=== PATIENT | female | born 1980 | race Caucasian/White ===

== ENCOUNTER 2017-04-23 17:07 | Emergency (ER) | payer SELFPAY ==
[2017-04-23 17:07] VITALS: BP 133/83; PULSE 94; RESP 16; TEMP 36.9; O2SAT 97; BMI 26.5
--- NOTE | 2017-04-23 17:26 | RAD_ITS ---
STUDY: X-RAY - RIGHT FOOT CLINICAL: Female, 36 years old. Pain TECHNIQUE: 3 view(s) of the foot. COMPARISON: None. FINDINGS: Normal talus, calcaneus, and tarsal bones. Normal visualized subtalar, talonavicular, calcaneocuboid, tarsal and tarsometatarsal articulations. Postop changes status post ORIF fracture of the fifth metatarsal with indwelling orthopedic partially threaded screw Normal metatarsophalangeal joint of the great toe. Normal tibial and fibular sesamoid bones. Normal interphalangeal joint of the great toe. Normal phalanges of the great toe. Normal second through fifth metatarsophalangeal joints. Normal interphalangeal joints and phalanges of the lesser toes. The soft tissue structures are unremarkable. RAD/Foot min 3 Views IMPRESSION: Postsurgical changes of the fifth metatarsal. No evidence for acute fracture Electronically Signed: David Talley MD at 18:02 EDT , Service support ,
--- NOTE | 2017-04-23 17:26 | ED.VISSUMM ---
- ER Visit Summary Date of Service: 04/23/17 Chief Complaint: Right foot injury History of Present Illness: The patient is a 36 F right foot injury at 4 PM today in the basement. Tripped over a hose twisting her foot. No falls or head injuries. No paresthesias. Using home crutches. No history of gastric ulcers or kidney injuries. Has had a Stevens fracture left foot repaired by Dr. Leticia Rogers in the past. Is concerned of fracture. No medications taken prior to arrival. Physical Examination: General: Alert and oriented ?3, no acute distress HEENT: Normocephalic, atraumatic. Moist mucosa membranes Neck: supple, nontender. Cardiovascular: Regular rate and rhythm, no murmurs Respiratory: Normal breath sounds, symmetric, no distress Abdomen: Soft, nontender, nondistended Extremities: Right lower extremity: No knee or ankle tenderness. No proximal fifth base tenderness. There is tenderness to the midfoot with slight swelling. Skin intact. Neurovascularly intact. Neuro: no focal neurological deficits. Test Results: Right foot x-ray: No fracture dislocation, hardware intact that fifth metatarsal. Emergency Department Course and Treatment: Ice was placed. Patient declined any medications. X-ray negative. Decline Andrey wrap her postop shoe. She does have crutches. Rice therapy discussed. She may use [id number] Tylenol or Motrin as needed. All questions were answered. Treatment Plan: Symptomatic Disposition: Discharge Impression: Right foot sprain This note was generated with [employer] dictation software. It may contain incorrect words, spelling, and punctuation that were not noted in review of the chart prior to signing ED Disposition - Plan for ED Patient: Disposition: Home or Assisted Living Chief Complaint: Lower Extremity Injury Diagnosis: Right foot sprain Instructions: ED Sprain Foot Referrals: Parris Enriquez [Primary Care Provider] - 5-7 Days
[2017-04-23 18:12] VITALS: PULSE 87; RESP 16; O2SAT 98
== END 2017-04-23 18:13 | disposition home or self-care (01) ==
PROVIDERS: Emergency Provider Emergency Medicine; Family Provider Nurse Practitioner; PCP Nurse Practitioner
DX: S93.601A Unspecified sprain of right foot, initial encounter (principal); W22.8XXA Striking against or struck by other objects, initial encounter; Y93.9 Activity, unspecified; Y92.008 Other place in unspecified non-institutional (private) residence as the place of occurrence of the external cause; Y99.9 Unspecified external cause status; K21.9 Gastro-esophageal reflux disease without esophagitis; F31.9 Bipolar disorder, unspecified
CPT/HCPCS: 73630; 99282

== ENCOUNTER 2018-05-09 18:41 | Emergency (ER) | payer BC, SELFPAY ==
[2018-05-09 18:42] VITALS: BP 122/96; PULSE 94; PULSE 98; RESP 17; RESP 18; TEMP 36.5; O2SAT 97; O2SAT 98; BMI 28.0
[2018-05-09] MEDS: Metoclopramide 10 MG/2 ML Vial IV (19:54)
[2018-05-09] MEDS: Ketorolac 30 MG/ML Syringe IV (19:54)
[2018-05-09] MEDS: DiphenhydrAMINE 50 MG/ML Syringe 25 MG IV (19:54)
[2018-05-09] MEDS: 0.9% Normal Saline 1,000 ML 999 ML IV (19:54)
--- NOTE | 2018-05-09 20:56 | ED.VISSUMM ---
- ER Visit Summary Date of Service: 05/09/18 Chief Complaint: Headache History of Present Illness: The patient is a 37 F who presents with headache that began today. Patient has a history of migraine headaches. Patient states this is different than other migraine headaches but this is not the worst headache of her life. Patient states her pain is worse when she moves her head. Patient admits to some nausea and vomiting. Patient admits to photophobia. Patient admits to some tingling in her hands but denies any numbness or weakness. Patient denies any visual changes or scotoma. Physical Examination: Vital signs are stable. Patient is afebrile. Patient is in no acute distress. Cranial nerves II through XII are intact. There are no focal motor or sensory deficits noted. Neck is supple. Trachea is midline. There is no JVD noted. There is no meningismus noted. Heart was regular rate and rhythm. Lungs are clear and equal bilateral. Abdomen is soft and nontender. Emergency Department Course and Treatment: She was given IV fluids, Reglan, Benadryl, and Toradol. Patient felt better on reevaluation. Patient was instructed to rest in a dark quiet room. Patient was instructed to follow-up with her primary care physician in 7-10 days. Patient understood and was agreeable with the plan. All questions were answered. Disposition: Discharge home Impression: Migraine headache This note was generated with [employer] dictation software. It may contain incorrect words, spelling, and punctuation that were not noted in review of the chart prior to signing ED Disposition - Plan for ED Patient: Disposition: Home or Assisted Living Diagnosis: Migraine headache Instructions: ED Headache Migraine Referrals: Parris Enriquez NP-C [Primary Care Provider] - 5-7 Days
[2018-05-09 21:12] VITALS: BP 129/76; PULSE 72; RESP 18; O2SAT 98
== END 2018-05-09 21:14 | disposition home or self-care (01) ==
PROVIDERS: Emergency Provider Emergency Medicine; Family Provider Nurse Practitioner; PCP Nurse Practitioner
DX: G43.809 Other migraine, not intractable, without status migrainosus (principal)
CPT/HCPCS: 99284

== ENCOUNTER → 2018-07-02 16:43 | Outpatient (CLI) | payer BC, SELFPAY ==
[2018-07-02 18:04] LABS: Absolute Lymphocyte Count 1.11 X10^3/ul (0.83-4.51); Absolute Neutrophil Count 2.8 X10^3/uL (2.0-7.7); Basophil# 0.02 X10^3/uL; Basophil% 0.5 % (0-1); Eosinophil# 0.03 X10^3/uL; Eosinophils% 0.7 % (0-5); Hematocrit 43.3 % (37-47); Hemoglobin 14.6 g/dl (12.0-15.0); Lymphocyte # 1.11 X10^3/ul (4.0); Lymphocyte % 25.4 % (19-41); Mean Corp Hgb Conc 33.7 g/gl (32-36); Mean Corpuscular Hgb 31.6 pg (27.0-32.0); Mean Corpuscular Volume 93.7 fL (81-99); Mean Platelet Vol. 10.6 fl (6.2-12.0); Monocyte# 0.36 X10^3/uL; Monocyte% 8.2 % (0-10); Neutrophil # 2.84 X10^3/uL (2.7-7.7); Platelet Count 246 K/mm3 (150-450); RBC Distribution Width CV 12.4 % (11.6-14.6); RBC Distribution Width SD 41.8 fl (35.1-43.9); Red Blood Count 4.62 M/mm3 (4.2-5.4); White Blood Count 4.4 K/mm3 (4.4-11.0)
[2018-07-02 18:05] LABS: POSITIVE COUNT NO; POSITIVE DIFFERENTIAL NO; POSITIVE MORPHOLOGY NO
[2018-07-02 18:24] LABS: ALB/GLOB Ratio 1.1 RATIO (0.9-2.4); AST(SGOT) 17 U/L (15-37); Alanine Aminotransfer ALT/SGPT 23 U/L (13-56); Albumin, Serum 3.8 g/dL (3.2-5.0); Alkaline Phosphatase 67 U/L (45-117); Anion Gap 7 (5-15); BUN 9 mg/dL (7-18); BUN/Creat Ratio 9.1 RATIO (10-20); Calcium,Total 8.8 mg/dL (8.5-10.1); Chloride 108 mmol/L (98-107); Creatinine, Serum 0.99 mg/dL (0.55-1.02); EST Glomerular Filtration Rate 67 mL/min (>60); Est Glom Filt Rate - Afr Amer 80 mL/min (>60); Globulin 3.4 g/dL (2.2-4.2); Glucose 94 mg/dL (74-106); Protein, Total 7.2 g/dL (6.4-8.2); Sodium Level 142 mmol/L (136-145); Thyroid Stim Hormone (TSH) 0.36 uIU/mL (0.358-3.74)
== END ==
PROVIDERS: Family Provider Nurse Practitioner; PCP Nurse Practitioner; Referring Provider Nurse Practitioner; Visit Provider Nurse Practitioner
DX: F31.9 Bipolar disorder, unspecified (principal)
CPT/HCPCS: 36415; 80053; 84443; 85025

== ENCOUNTER → 2019-03-15 06:54 | Outpatient (CLI) | payer BC, SELFPAY ==
--- NOTE | 2019-03-15 06:59 | CT_ITS ---
STUDY: CT CERVICAL SPINE WITHOUT CONTRAST REASON FOR EXAM: Female, 38 years old. FALL HEAD AND NECK TRAUMA 5 DAYS AGO. VASOVAGAL SYNCOPE RADIATION DOSAGE (If Supplied By Facility): CTDIvol = ( 19.13 ) mGy, DLP = ( 385.81 ) mGycm TECHNIQUE: High resolution transaxial imaging was performed without contrast material. Sagittal and coronal images were reconstructed. Individualized dose optimization techniques were used for this CT. COMPARISON: None FINDINGS: Normal craniovertebral junction. Normal anterior atlantoaxial articulation. Normal odontoid process. There is straightening of the normal cervical lordosis. Normal vertebral bodies and posterior osseous elements. C2-3: Normal endplates. Normal disc height and morphology. Normal central canal and intervertebral neuroforamina. C3-4: Normal endplates. Normal disc height and morphology. Normal central canal and intervertebral neuroforamina. C4-5: Normal endplates. Normal disc height and morphology. Normal central canal and intervertebral neuroforamina. C5-6: Normal endplates. Normal disc height and morphology. Normal central canal and intervertebral neuroforamina. C6-7: Normal endplates. Normal disc height and morphology. Normal central canal and intervertebral neuroforamina. C7-T1: Normal endplates. Normal disc height and morphology. Normal central canal and intervertebral neuroforamina. Normal visualized soft tissue structures. CT/Spine Cervical without Contras IMPRESSION: There is straightening of the normal cervical lordosis. Electronically Signed: Artem Jordan, at 9:03 EST , Service support ,
--- NOTE | 2019-03-15 06:59 | CT_ITS ---
STUDY: CT BRAIN WITHOUT CONTRAST REASON FOR EXAM: Female, 38 years old. FALL HEAD AND NECK TRAUMA 5 DAYS AGO. VASOVAGAL SYNCOPE RADIATION DOSAGE (If Supplied By Facility): CTDIvol = ( 44.99 ) mGy, DLP = ( 728.62 ) mGycm TECHNIQUE: Transaxial CT imaging of the brain was performed without administration of intravenous contrast material. Individualized dose optimization techniques were used for this CT. COMPARISON: No relevant priors. FINDINGS: Normal soft tissue structures. Normal calvarium. Normal size ventricles and extra-axial spaces for the patient''s age. Normal white matter tracts of the cerebral hemispheres. Normal basal ganglia and thalami. Normal brainstem. Normal cerebellum. There is no intracranial hemorrhage. There are no findings of an acute ischemic infarction. Normal visualized paranasal sinuses. CT/Brain/Head without Contrast IMPRESSION: Normal unenhanced CT scan of the brain. Electronically Signed: Artem Jordan, at 9:02 EST , Service support ,
== END ==
PROVIDERS: PCP Nurse Practitioner; Referring Provider Nurse Practitioner; Visit Provider Nurse Practitioner
DX: S09.90XA Unspecified injury of head, initial encounter (principal); R55 Syncope and collapse
CPT/HCPCS: 70450; 72125; 95819

== ENCOUNTER → 2019-04-12 07:35 | Outpatient (CLI) | payer BC, SELFPAY ==
--- NOTE | 2019-04-12 07:37 | US_ITS ---
STUDY: THYROID ULTRASOUND REASON FOR EXAM: Female, 38 years old. ABN TSH -- EPISODES OF SYNCOPE TECHNIQUE: Ultrasound evaluation of the thyroid was performed with real-time and static wallace-scale imaging. COMPARISON: None. FINDINGS: RIGHT LOBE: The right lobe of the thyroid gland measures 5.6 x 2.0 x 1.6 cm. There is a homogeneous echotexture. There are no demonstrated solid, cystic or complex lesions. LEFT LOBE: The left lobe of the thyroid gland measures 5.1 x 1.9 x 1.2 cm. There is a homogeneous echotexture. There are no demonstrated solid, cystic or complex lesions. ISTHMUS: The isthmus measures 3 mm . The regional lymph nodes are normal. US/Thyroid IMPRESSION: Enlarged homogeneous bilateral thyroid, with increased vascularity. Could consider Graves'' disease in the appropriate laboratory setting. No visualized focal nodules. Electronically Signed: Bernadette Huff MD at 9:00 EST Tel , Service support ,
== END ==
PROVIDERS: PCP Nurse Practitioner; Referring Provider Nurse Practitioner; Visit Provider Nurse Practitioner
DX: R94.6 Abnormal results of thyroid function studies (principal)
CPT/HCPCS: 76536

== ENCOUNTER → 2019-04-29 07:49 | Outpatient (CLI) | payer BC, SELFPAY ==
--- NOTE | 2019-04-29 07:51 | ECHOD_ITS ---
Reason For Study: Syncope- Every other day Procedure This was a 2D Doppler, Color Flow transthoracic echocardiogram. Contrast injection was performed. Exam performed in department. Left Ventricle Normal LV size. Left ventricular systolic function is normal. The estimated ejection fraction is 65 %. No regional wall motion abnormalities noted. Right Ventricle Normal RV size. Normal systolic function. Atria Normal left atrium. Normal right atrium. Mitral Valve Normal mitral valve. Tricuspid Valve Normal tricuspid valve. Aortic Valve Normal aortic valve. Trisinus/trileaflet aortic valve. Pulmonic Valve Normal pulmonic valve. Great Vessels Normal aortic root. The pulmonary artery is normal size. Normal inferior vena cava. Pericardium/Pleural No pericardial effusion. Medication 22 gauge I.V. with prn adaptor inserted into right arm. Performed a rapid injection of agitated mix of 9 cc saline and 1cc air to assess for atrial septal defect. MMode/2D Measurements & Calculations LVIDd: 4.0 cm IVSd: 0.95 cm Ao root diam: 2.9 cm LVIDs: 2.6 cm LVPWd: 1.1 cm LA dimension: 3.4 cm RVDd: 3.2 cm FS: 34.7 % LAV(MOD-bp): 46.6 ml LA A4 area: 16.5 cm2 RA A4 area: 13.0 cm2 LAV(MOD-bp) Indexed: 25.8 ml/m2 LAV(MOD-sp2): 48.6 ml LAV(MOD-sp4): 43.8 ml Time Measurements MV dec time: 0.25 sec Doppler Measurements & Calculations MV E max bhargav: 75.1 cm/sec Lat Peak E' Bhargav: 15.2 cm/sec Med Peak E' Bhargav: 10.7 cm/sec MV A max bhargav: 67.6 cm/sec E/E' lat: 5.0 E/E' med: 7.0 MV E/A: 1.1 MV V2 max: 91.3 cm/sec MV P1/2t max bhargav: 89.1 cm/sec Ao V2 max: 126.6 cm/sec MV max P.3 mmHg MV P1/2t: 70.8 msec Ao max P.4 mmHg MV V2 mean: 53.0 cm/sec MV dec slope: 368.7 cm/sec2 MV mean P.3 mmHg MV V2 VTI: 21.7 cm MVA(P1/2t): 3.1 cm2 LV V1 max: 86.6 cm/sec PA V2 max: 98.2 cm/sec LV V1 max P.0 mmHg Interpretation Summary The estimated ejection fraction is 65 %. Left ventricular systolic function is normal. Normal LV size. Structurally normal valves. Ordering Physician: Cristian Brunner Referring Physician: Cristian Brunner Performed By: Walter Box RCS
--- NOTE | 2019-04-29 08:27 | CDU_ITS ---
Reason For Study: Syncope Rt. Velocities/BP Lt. Velocities/BP Prox CCA 101/20 cm/sec. Prox CCA 127/27 cm/sec. Mid CCA 110/23 cm/sec. Mid CCA 131/39 cm/sec. Dist CCA 103/29 cm/sec. Dist CCA 98/38 cm/sec. Prox ICA 114/25 cm/sec. Prox ICA 88/30 cm/sec. Mid ICA 99/32 cm/sec. Mid ICA 79/31 cm/sec. Dist ICA 78/28 cm/sec. Dist ICA 87/36 cm/sec. Rt. ICA/CCA = 1.04. Lt. ICA/CCA = 0.7. Prox ECA 117/17 cm/sec. Prox ECA 100/18 cm/sec. Rt. Vert. 62/19 cm/sec. Lt. Vert. 63/20 cm/sec. Right Extracranial There is intimal thickening but no significant atherosclerotic plaque noted in the right common carotid artery. There is intimal thickening but no significant atherosclerotic plaque noted in the right internal carotid artery. There is no significant atherosclerotic plaque noted in the right external carotid artery. Antegrade flow is noted in the right vertebral artery. Left Extracranial There is intimal thickening but no significant atherosclerotic plaque noted in the left common carotid artery. There is intimal thickening but no significant atherosclerotic plaque noted in the left internal carotid artery. There is intimal thickening but no significant atherosclerotic plaque noted in the left external carotid artery. Antegrade flow is noted in the left vertebral artery. Interpretation Summary No significant atherosclerotic plaque or stenosis noted in the internal carotid arteries bilaterally. Flow within the vertebral arteries is antegrade bilaterally. Ordering Physician: Cristian Brunner Referring Physician: Parris Enriquez Performed By: Laurel Cardoza, MIREYACS, RVT
== END ==
PROVIDERS: PCP Nurse Practitioner; Referring Provider Psychiatry & Neurology Neurology; Visit Provider Psychiatry & Neurology Neurology
DX: R55 Syncope and collapse (principal)
CPT/HCPCS: 93306; 93880; A4216

== ENCOUNTER → 2019-09-25 07:46 | Outpatient (CLI) | payer BC, SELFPAY ==
[2019-09-25] MEDS: Cosyntropin 0.25 MG Vial IV (08:39)
[2019-09-25 08:58] VITALS: BP 129/92; PULSE 85; RESP 16; TEMP 36.5; O2SAT 97; BMI 31.8
[2019-09-25 10:00] VITALS: BP 154/88; PULSE 68
[2019-09-26 16:08] LABS: DHEA Sulfate 64.1 ug/dL (57.3-279.2)
== END ==
PROVIDERS: PCP Nurse Practitioner; Referring Provider Internal Medicine Endocrinology, Diabetes & Metabolism; Visit Provider Internal Medicine Endocrinology, Diabetes & Metabolism
DX: E27.9 Disorder of adrenal gland, unspecified (principal)
CPT/HCPCS: 96374; 82024; 82533; 82627; 82626; A4216; J0834

== ENCOUNTER → 2020-06-18 15:36 | Outpatient (CLI) | payer OTHER, SELFPAY ==
[2019-09-25 08:58] VITALS: BMI 31.8
--- NOTE | 2020-06-18 15:39 | US_ITS ---
STUDY: ULTRASOUND OF THE FEMALE PELVIS - COMPLETE REASON FOR EXAM: Female, 39 years old. BLEEDING LMP: 4-21 TECHNIQUE: Transabdominal real-time exam with grayscale image documentation. TECHNICAL QUALITY: Adequate. COMPARISON: None. FINDINGS: The uterus is anteverted on transabdominal ultrasound and retroverted on transvaginal ultrasound and is in a midline position. The uterus measures 8.0 x 8.0 x 4.3 cm. Nabothian cyst of the cervix. Septated uterus with endometrial thickening of 9 mm. The endometrium is striated. There is no demonstrated endometrial mass. There is a 1.2 x 1.4 x 1.0 cm posterior right fibroid. I.U.D. - The patient does not have an I.U.D. The right ovary is visualized. The right ovary measures 2.5 x 1.7 x 1.5 cm. 14 x 13 x 11 mm dominant follicle of the right ovary. There is no visualized right adnexal mass or complex lesion. There is normal arterial and normal venous vascularity. The left ovary is visualized. The left ovary measures 3.8 x 2.3 x 1.8 cm. There is no left ovarian cyst or ovarian mass. There is no visualized left adnexal mass or complex lesion. There is normal arterial and normal venous vascularity. There is no fluid in the cul-de-sac. The pre void volume of the bladder was 454 ml. The post void volume of the bladder was 0 ml. Polycystic ovary disease: No. 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 1.2 x 1.4 x 1.0 cm fibroid of the uterus. Nabothian cyst of the cervix. Normal size of the ovaries bilaterally with normal DOPPLER flow. 14 x 13 x 11 mm dominant follicle of the right ovary. No additional adnexal masses or free fluid. Electronically Signed: Juliana Horowitz MD at 0:01 EDT , Service support ,
--- NOTE | 2020-06-18 15:39 | US_ITS ---
STUDY: ULTRASOUND OF THE FEMALE PELVIS - COMPLETE REASON FOR EXAM: Female, 39 years old. BLEEDING LMP: 4-21 TECHNIQUE: Transabdominal real-time exam with grayscale image documentation. TECHNICAL QUALITY: Adequate. COMPARISON: None. FINDINGS: The uterus is anteverted on transabdominal ultrasound and retroverted on transvaginal ultrasound and is in a midline position. The uterus measures 8.0 x 8.0 x 4.3 cm. Nabothian cyst of the cervix. Septated uterus with endometrial thickening of 9 mm. The endometrium is striated. There is no demonstrated endometrial mass. There is a 1.2 x 1.4 x 1.0 cm posterior right fibroid. I.U.D. - The patient does not have an I.U.D. The right ovary is visualized. The right ovary measures 2.5 x 1.7 x 1.5 cm. 14 x 13 x 11 mm dominant follicle of the right ovary. There is no visualized right adnexal mass or complex lesion. There is normal arterial and normal venous vascularity. The left ovary is visualized. The left ovary measures 3.8 x 2.3 x 1.8 cm. There is no left ovarian cyst or ovarian mass. There is no visualized left adnexal mass or complex lesion. There is normal arterial and normal venous vascularity. There is no fluid in the cul-de-sac. The pre void volume of the bladder was 454 ml. The post void volume of the bladder was 0 ml. Polycystic ovary disease: No. 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 1.2 x 1.4 x 1.0 cm fibroid of the uterus. Nabothian cyst of the cervix. Normal size of the ovaries bilaterally with normal DOPPLER flow. 14 x 13 x 11 mm dominant follicle of the right ovary. No additional adnexal masses or free fluid. Electronically Signed: Juliana Horowitz MD at 0:01 EDT , Service support ,
== END ==
PROVIDERS: PCP Nurse Practitioner; Referring Provider Nurse Practitioner; Visit Provider Nurse Practitioner
DX: N93.9 Abnormal uterine and vaginal bleeding, unspecified (principal)
CPT/HCPCS: 76830; 76856

== ENCOUNTER → 2020-06-22 | Outpatient (CLI) | payer OTHER, SELFPAY ==
[2019-09-25 08:58] VITALS: BMI 31.8
[2020-06-24 20:41] LABS: HPV APTIMA, High Risk Negative (Negative)
== END | disposition home or self-care (01) ==
LOC: LABSPEC 12:52
PROVIDERS: PCP Nurse Practitioner; Referring Provider Nurse Practitioner Women's Health; Visit Provider Nurse Practitioner Women's Health
DX: Z12.4 Encounter for screening for malignant neoplasm of cervix (principal)
CPT/HCPCS: 87624; 88175; G0145

== ENCOUNTER → 2020-07-09 12:06 | Outpatient (CLI) | payer OTHER, SELFPAY ==
[2019-09-25 08:58] VITALS: BMI 31.8
--- NOTE | 2020-07-09 12:16 | RAD_ITS ---
STUDY: HYSTEROSALPINGOGRAM. REASON FOR EXAM: Female, 39 years old. Infertility septate uterus FLUOROSCOPY TIME (if supplied): ( 34 seconds. ) minutes/seconds. 5 fluoroscopic images were obtained. TECHNIQUE: A hysterosalpingogram was performed by the welding machine operator helper gas. Imaging was provided. COMPARISON: None. FINDINGS: Small septation in the fundal aspect of the uterus. Both fallopian tubes are patent with free spill. RAD/Salpingogram IMPRESSION: Patency of both fallopian tubes. Electronically Signed: Artem Jordan MD at 13:17 EDT , Service support ,
--- NOTE | 2020-07-09 17:22 | OP.PCM_ITS ---
Problems Associated Problem List Diagnoses (1) Menorrhagia with regular cycle: (2) Infertility: (3) History of recurrent miscarriages: Operative Report Date of Procedure: 07/09/20 Preop diagnosis: Infertility, see PL Postop diagnosis: Same plus bilateral tubal patency Procedure: Hysterosalpingogram Surgeon: Yancy Mccoy Implantable devices: None Complications: None Findings: Bilateral tubal patency and normal uterine cavity Operative details: Patient was taken to the x-ray room and was placed on the x- ray table and was in the dorsal lithotomy position. Speculum was placed in the vagina and the cervix prepped with Betadine and the HSG catheter was easily introduced into the uterus and speculum removed. Radiologist was brought in and while pushing radiopaque dye into the uterus via the HSG catheter the radiologist took multiple images and views and confirmed bilateral tubal patency seen. No gross uterine filling defects or abnormalities were seen. All instruments removed from the vagina and the uterus without complication. Patient tolerated the procedure well.
== END ==
PROVIDERS: PCP Nurse Practitioner; Referring Provider Obstetrics & Gynecology; Visit Provider Obstetrics & Gynecology
DX: N97.9 Female infertility, unspecified (principal); N96 Recurrent pregnancy loss; Q51.28 Other and unspecified doubling of uterus
CPT/HCPCS: 58340; 74740; Q9967

== ENCOUNTER → 2020-07-23 15:17 | Outpatient (CLI) | payer OTHER, SELFPAY ==
[2019-09-25 08:58] VITALS: BMI 31.8
--- NOTE | 2020-07-23 15:19 | BI_ITS ---
MAMMOGRAPHY - BILATERAL SCREENING REASON FOR EXAM: Female, 39 years old. Routine annual screening examination. PERTINENT HISTORY: Mother with breast cancer. Grandmother with breast cancer. TECHNIQUE: Digital bilateral breast lucita (3D mammographic acquisition) in the CC and MLO projections. 2-D mediolateral oblique (MLO) and craniocaudad (CC) views of both breasts were obtained. CAD: Full Field Digital Mammography with Computer Added Detection was performed. COMPARISON: None. Baseline examination. FINDINGS: Breast Composition: The breasts are heterogeneously dense, which may obscure small masses. There are no dominant masses or suspicious calcifications. Benign-appearing right axillary lymph nodes. No other significant abnormalities are identified. BI/SCRN MAMM (CAD)W/LUCITA BILAT IMPRESSION: Negative screening mammogram. Yearly followup mammogram recommended. (A) ASSESSMENT CATEGORY: BIRADS Category 2: Benign. A letter regarding these results will be sent to the patient by the facility within 30 days. Approximately 10% of breast cancers are not detected by mammography. A normal mammogram should not delay biopsy of a clinically suspicious abnormality. [id number] Electronically Signed: Artem Jordan MD at 8:12 EDT , Service support ,
== END ==
PROVIDERS: PCP Nurse Practitioner; Referring Provider Nurse Practitioner Women's Health; Visit Provider Nurse Practitioner Women's Health
DX: Z12.31 Encounter for screening mammogram for malignant neoplasm of breast (principal)
CPT/HCPCS: 77063; 77067

== ENCOUNTER → 2022-03-30 | Outpatient (CLI) | payer OTHER, SELFPAY ==
--- NOTE | 2022-03-30 09:36 | RAD_ITS ---
STUDY: X-RAY CHEST REASON FOR EXAM: Female, 41 years old. Cough -- STAT TECHNIQUE: PA and lateral views of the chest. COMPARISON: Comparison is made with prior study 05/28/2021 and 04/10/2016. FINDINGS: The lungs are clear and expanded. There is no demonstrated pleural abnormality. Normal size heart. Normal mediastinum and jasbir. Normal visualized pulmonary arteries. Normal visualized aortic arch and descending thoracic aorta. There is demineralization of the osseous structures. Normal visualized ribs, clavicles, and shoulders. There is no demonstrated abnormality of the visualized soft tissue structures of the upper abdomen. RAD/Chest PA and Lateral IMPRESSION: Normal x-ray examination of the chest. Electronically Signed: Artem Jordan MD at 10:25 EST ,
== END | disposition home or self-care (01) ==
PROVIDERS: PCP Nurse Practitioner Family; Referring Provider Nurse Practitioner Family; Visit Provider Nurse Practitioner Family
DX: R05.9 Cough, unspecified (principal)
CPT/HCPCS: 71046

== ENCOUNTER 2023-02-14 12:49 | Emergency (ER) | payer OTHER, SELFPAY ==
[2023-02-14 12:51] VITALS: BP 119/85; PULSE 77; RESP 14; TEMP 37.2; O2SAT 97; BMI 32.3
--- NOTE | 2023-02-14 13:55 | RAD_ITS ---
STUDY: X-RAY CHEST REASON FOR EXAM: Female, 42 years old. Cough. TECHNIQUE: Frontal and lateral views of the chest. COMPARISON: March 30, 2022 FINDINGS: The lungs are clear and expanded. There is no demonstrated pleural abnormality. Normal size heart. Normal mediastinum and jasbir. Normal visualized pulmonary arteries. Normal visualized aortic arch and descending thoracic aorta. Normal visualized thoracic spine. Normal visualized ribs, clavicles, and shoulders. There is no demonstrated abnormality of the visualized soft tissue structures of the upper abdomen. RAD/Chest PA and Lateral IMPRESSION: No interval change and no acute or active cardiopulmonary disease. Electronically Signed: Minesh Johnson MD at 15:04 EST ,
--- NOTE | 2023-02-14 14:01 | EDS_ITS ---
HPI HPI - URI History of Present Illness Chief Complaint: Shortness of Breath Informant: patient Narrative Narrative: Patient presents with flulike illness. Patient's had about 7 days of symptoms. Started with muscle aches. Then went to cough. The last for 5 days every time she coughs she vomits so she is not eating or drinking. No dysuria. She is not actually short of breath. Her biggest complaint is muscle aches head to toe. 2 family members have had the same thing but there is was not as bad. She is taken 2 or 3 COVID test at home that are negative. She has no history of lung disease. Despite the posttussive vomiting she is not having abdominal pain. She is not having diarrhea. She is trying to drink fluids but cannot keep much of that down either. ROS ROS ED ROS Narrative A complete review of systems was performed and is negative except as documented in the history of present illness. Some specific details below. Constitutional: Subjective fevers chills. Diffuse myalgias. Overall malaise. EYE: No discharge, visual complaints, or pain. No discharge. ENT: No difficulty swallowing. No sore throat. Mild nasal congestion and sneezing and had a sore throat but that is gone. CV: No chest pain palpitations or syncope. Respiratory: See history of present illness. GI: No abdominal pain. She has had nausea and vomiting but sounds like most of this is posttussive. But she also states anytime she puts something in her stomach and makes her cough and then coughing makes her vomit. No blood has been seen. : No frequency dysuria or hematuria. No odor. No change in color. Does not sound like it is darker. Musculoskeletal: No recent trauma. She does have diffuse myalgias. Skin: No rash. Nondiaphoretic. Neuro: No weakness or numbness. Endocrine: No polyuria or polydipsia. [facility] Medical History Affective bipolar disorder Anxiety Chronic fatigue Fibromyalgia Insomnia Menorrhagia with regular cycle Migraine Osteoarthritis Psoriasis Septate uterus Vaso vagal episode Home Medications lamotrigine 50 mg disintegrating tablet 50 mg PO BID 09/25/19 [History Last Taken Unknown] midodrine 2.5 mg tablet 2.5 mg PO TID 09/25/19 [History Last Taken Unknown] mirtazapine 15 mg tablet 15 mg PO 09/25/19 [History Last Taken Unknown] rizatriptan 10 mg disintegrating tablet 10 mg PO .X1 PRN 09/25/19 [History Last Taken Unknown] sertraline 100 mg tablet 100 mg PO BID 09/25/19 [History Last Taken Unknown] hydroxyzine HCl 50 mg tablet 50 mg PO TID 06/22/20 [History Last Taken Unknown] methimazole 5 mg tablet 5 mg PO TID 06/22/20 [History Last Taken Unknown] sertraline 100 mg tablet (Zoloft) 100 mg PO .QOD 06/22/20 [History Last Taken Unknown] ondansetron 4 mg disintegrating tablet 4 mg PO Q8H PRN PRN Nausea #10 tabs 02/14/23 [Rx Last Taken Unknown] promethazine 25 mg tablet 25 mg PO Q6H PRN PRN Nausea #10 TABLETS 02/14/23 [Rx Last Taken Unknown] Allergy/AdvReac Type Severity Reaction Status Date / Time amoxicillin trihydrate Allergy Unknown Verified 02/14/23 12:50 [From Augmentin] egg Allergy Unknown Verified 02/14/23 12:50 lactose Allergy Unknown Verified 02/14/23 12:50 latex Allergy Unknown Verified 02/14/23 12:50 potassium clavulanate Allergy Unknown Verified 02/14/23 12:50 [From Augmentin] soy Allergy Unknown Verified 02/14/23 12:50 venlafaxine [From Effexor] AdvReac Other Verified 02/14/23 12:50 Family History Grandmother COPD (chronic obstructive pulmonary disease) CHF (congestive heart failure) Graves disease Mother Breast cancer Asthma Surgical History H/O dilation and curettage H/O foot surgery History of carpal tunnel release Social History household members: spouse and friend(s) number of children: 0 current occupational status: unemployed history of recent travel: No sexually active: Yes Smoking Status: Never smoker alcohol intake: current alcohol intake frequency: a few times a week substance use type: does not use what type of physical activity do you participate in: walking frequency: 1-2 times per week seatbelt use: always do you feel safe at home: Yes additional social history: - [place] EXAM Physical Exam Narrative Exam Narrative: CONSTITUTIONAL: The patient looks comfortable. Work of breathing looks normal. She does not look toxic HEENT: No notable trauma. Mucous membranes just mildly dry. No exudate or erythema. No sinus tenderness. No indication of pain with swallowing. EYES: No conjunctival injection. No icterus NECK:No JVD. No stridor. CARDIOVASCULAR: Regular rate. Regular rhythm. No notable murmur. No JVD. RESPIRATORY: No respiratory distress. Breathing is unlabored. No wheezes. No rhonchi. No rales. No pain with a deep breath. No chest wall tenderness. No coughing while I am in the room. Saturations are normal at 97% on room air showing no hypoxia. GASTROINTESTINAL: Not distended. Bowel sounds are normal. No tenderness. No guarding. No rebound. No palpable mass. No bruit is heard. GENITOURINARY: No tenderness over the bladder. No CVA tenderness. MUSCULOSKELETAL: Atraumatic. No tenderness. NEUROLOGICAL: Patient is alert and appropriate. No focal deficit noted. SKIN: No noted rashes. No diaphoresis. PSYCHIATRIC: Patient is calm. Mood is appropriate. Const Vital Signs: 02/14/23 12:51 02/14/23 14:35 Temperature 99 F Temperature Source Temporal Pulse Rate 77 Respiratory Rate 14 Respiratory Effort Normal Non-Labored Respiratory Depth Normal Respiratory Pattern Normal Blood Pressure 119/85 H Blood Pressure Mean 96 Pulse Ox 97 Oxygen Delivery Method Room Air MDM MDM MDM Narrative Medical decision making narrative: My independent interpretation of the patient's two-view chest x-ray shows no acute process and final reading is similar. See BC's show some mildly low white count which is typical for viral pattern. Is nonspecific. It does not need treatment. Patient's electrolytes are normal. No sign of significant dehydration or acute kidney injury. Patient's glucose is normal at 90. Patient's viral studies are pending. Patient states she can access these on her phone. She states her nausea is better but not completely gone. I will see if we can get her some Phenergan here. I will write her for both Phenergan and Zofran so she has options. Even if the viral studies are positive we would not provide treatment for these specifically. I think she is safe for discharge. Lab Data Attestation: I reviewed the patient's lab results. Labs: Laboratory Results - last 24 hr 02/14/23 14:05 WBC 3.5 L RBC 4.69 Hgb 14.5 Hct 43.6 MCV 93.0 MCH 30.9 MCHC 33.3 RDW Std Deviation 43.1 RDW Coeff of Danyelle 12.5 Plt Count 193 MPV 9.5 Immature Gran % (Auto) 0.300 Neut % (Auto) 50.8 Lymph % (Auto) 41.8 H Page % (Auto) 5.9 Eos % (Auto) 0.6 Baso % (Auto) 0.6 Absolute Neuts (auto) 1.8 L Absolute Lymphs (auto) 1.48 Nucleated RBC % 0 Sodium 141 Potassium 4.0 Chloride 108 H Carbon Dioxide 29.0 Anion Gap 4 L BUN 9 Creatinine 0.72 Estim Creat Clear Calc 79.68 Est GFR (MDRD) Af Amer 113 Est GFR (MDRD) Non-Af 93 BUN/Creatinine Ratio 12.4 Glucose 90 Calcium 8.4 L Radiography Diagnostic Testing: Clinical Impression(s) from Imaging Studies Chest X-Ray 02/14/23 13:55 IMPRESSION: No interval change and no acute or active cardiopulmonary disease. Electronically Signed: Minesh Johnson MD at 15:04 EST , EKG Initial EKG: Comments: My independent interpretation of the patient's EKG shows normal sinus rhythm with a rate of 71. No ectopy. No acute ST elevation or depression. DC interval, QRS duration and QTc are all normal Discharge Plan Triage Chief Complaint: Shortness of Breath ED Provider: Phi Longoria Dx/Rx/DC Orders Clinical Impression: Influenza-like illness, Cough, Post-tussive emesis Instructions: ED Viral Syndrome (Adult), ED Vomiting (Adult) Prescriptions: New promethazine [promethazine] 25 mg tablet 25 mg PO Q6H PRN PRN (Reason: Nausea) Qty: 10 0RF ondansetron [ondansetron] 4 mg tablet,disintegrating 4 mg PO Q8H PRN PRN (Reason: Nausea) Qty: 10 0RF No Action sertraline [Zoloft] 100 mg tablet 100 mg PO .QOD hydroxyzine HCl 50 mg tablet 50 mg PO TID sertraline 100 MG tablet 100 mg PO BID rizatriptan 10 MG tablet,disintegrating 10 mg PO .X1 PRN midodrine 2.5 MG tablet 2.5 mg PO TID mirtazapine 15 MG tablet 15 mg PO lamotrigine 50 MG tablet,disintegrating 50 mg PO BID methimazole 5 mg tablet 5 mg PO TID Primary Care Provider: Farida Iniguez Referrals: Farida Iniguez, [facility] [Primary Care Provider] - 3-5 Days Disposition Disposition: Home, Self Care
--- NOTE | 2023-02-14 14:03 | NURSING ---
NO OLD EKGS
[2023-02-14 14:12] LABS: Absolute Lymphocyte Count 1.48 X10^3/uL (0.83-4.51); Absolute Neutrophil Count 1.8 X10^3/uL (2.0-7.7); Basophil# 0.02 X10^3/uL; Basophil% 0.6 % (0-1); Eosinophil# 0.02 X10^3/uL; Eosinophils% 0.6 % (0-5); Hematocrit 43.6 % (37-47); Hemoglobin 14.5 g/dL (12.0-15.0); Lymphocyte # 1.48 X10^3/ul (0.83-4.51); Lymphocyte % 41.8 % (19-41); Mean Corp Hgb Conc 33.3 g/dL (32-36); Mean Corpuscular Hgb 30.9 pg (27.0-32.0); Mean Platelet Vol. 9.5 fl (6.2-12.0); Monocyte# 0.21 X10^3/uL; Monocyte% 5.9 % (0-10); NRBC Flagged by Analyzer 0 % (0-5); Neutrophil % 50.8 % (47-70); Platelet Count 193 K/mm3 (150-450); RBC Distribution Width CV 12.5 % (11.6-14.6); RBC Distribution Width SD 43.1 fl (35.1-43.9); Red Blood Count 4.69 M/mm3 (4.2-5.4); White Blood Count 3.5 K/mm3 (4.4-11.0)
[2023-02-14 14:24] LABS: Anion Gap 4 (5-15); BUN 9 mg/dL (7-18); BUN/Creat Ratio 12.4 RATIO (10-20); Calcium,Total 8.4 mg/dL (8.5-10.1); Chloride 108 mmol/L (98-107); Creatinine, Serum 0.72 mg/dL (0.55-1.02); EST Glomerular Filtration Rate 93 mL/min (>60); Est Glom Filt Rate - Afr Amer 113 mL/min (>60); Estimated Creatinine Clearance 79.68 ml/min; Glucose 90 mg/dL (74-106); Sodium Level 141 mmol/L (136-145)
[2023-02-14] MEDS: Ondansetron 4 MG/2 ML Vial IV (14:33)
[2023-02-14] MEDS: 0.9% Normal Saline (1000mL) 1,000 ML 999 ML IV (14:33)
== END 2023-02-14 15:44 | disposition home or self-care (01) ==
PROVIDERS: Emergency Provider Emergency Medicine; PCP Nurse Practitioner Family; Visit Provider Emergency Medicine
DX: J11.1 Influenza due to unidentified influenza virus with other respiratory manifestations (principal); F31.9 Bipolar disorder, unspecified; Z79.899 Other long term (current) drug therapy; G43.909 Migraine, unspecified, not intractable, without status migrainosus; F41.9 Anxiety disorder, unspecified; R05.9 Cough, unspecified; R11.10 Vomiting, unspecified
CPT/HCPCS: 71046; 80048; 85025; 87428; 87634; 93005; 96361; 96374; 99284; J7030; J2405